=== PATIENT | male | born 1945 | race Caucasian/White ===

== ENCOUNTER → 2016-04-29 | Outpatient (CLI) | payer BC ==
[~2016-04-29] MED LIST: ALFU10TA30 PO; AMLO10CA PO; ASPI-232 PO; CLB/200 PO; METF500T PO; MULTTAB58 PO; OMEG10007 PO
--- NOTE | 2016-04-29 14:11 | DIAGNOSTIC IMAGING REPORT ---
K[facility] CLINICAL HISTORY: Microscopic hematuria. Nephrolithiasis. FINDINGS: 2 AP supine abdominal radiographs are compared to study dated 10/29/2015 and correlated with abdominal CT dated 06/26/2015. There is a nonobstructed abdominal bowel gas pattern. There are numerous right renal calculi (greater than 6) measuring up to 7 mm, the majority of which are clustered in the right upper pole. A 5 mm left renal calculus is noted. No calcifications are seen along the course of the ureters. Large pelvic phleboliths are unchanged. The skeletal structures are osteopenic. There is mild lumbosacral spondylosis. 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 IMPRESSION: Bilateral nephrolithiasis, not significantly changed from 10/29/2015. Electronically signed by: Gurdeep Bonilla M.D. 04/29/2016 2:09 PM Dictated Date/Time: 04/29/2016 2:06 PM
== END | disposition home or self-care (01) ==
LOC: C.RAD 13:26
PROVIDERS: ATTEND Urology
DX: N20.0 Calculus of kidney (principal); R31.29 Other microscopic hematuria; N40.0 Benign prostatic hyperplasia without lower urinary tract symptoms; R39.12 Poor urinary stream

== ENCOUNTER → 2017-11-17 | Outpatient (CLI) | payer BC ==
[~2017-11-17] MED LIST changes: +ALFU10TA2 PO; -ALFU10TA30 PO
--- NOTE | 2017-11-17 14:51 | DIAGNOSTIC IMAGING REPORT ---
K[facility] HISTORY: Nephrolithiasis. COMPARISON: KUB 04/29/2016. FINDINGS: The bowel gas pattern is unremarkable. There are no dilated loops of small bowel to suggest an obstruction. Bilateral nephrolithiasis is not significantly changed. No ureteral calculi. Calcifications in the deep pelvis remain stable and are consistent with phleboliths. There is a right total hip arthroplasty. The multiple clustered round stones within the upper pole of the right kidney appear to be associated with an exophytic cyst. The largest measures 6 mm. No pneumoperitoneum or pneumatosis. IMPRESSION: No significant change in the bilateral nephrolithiasis. No ureteral calculi. Electronically signed by: Shane Floyd M.D. 11/17/2017 2:50 PM Dictated Date/Time: 11/17/2017 2:46 PM
[2017-11-17 15:04] LABS: BLOOD UREA NITROGEN 19 mg/dl (7-18); CREATININE 0.87 mg/dl (0.60-1.40)
== END | disposition home or self-care (01) ==
LOC: C.LAB 13:59
PROVIDERS: ATTEND Urology
DX: N20.0 Calculus of kidney (principal)